=== PATIENT | male | born 2000 | race Caucasian/White ===

== ENCOUNTER 2021-08-25 22:44 | Emergency (ER) | payer MEDICAID, SELFPAY ==
[2021-08-25 22:45] VITALS: BP 148/67; PULSE 92; RESP 18; TEMP 36.6; O2SAT 98; BMI 38.5
--- NOTE | 2021-08-25 22:59 | PC.NURSE ---
Pt unable to give urine sample at this time.
--- NOTE | 2021-08-25 23:01 | CT_ITS ---
PROCEDURE INFORMATION: Exam: CT Abdomen And Pelvis Without Contrast Exam date and time: 08/25/2021 11:35 PM Age: 20 years old Clinical indication: Abdominal pain; Flank; Left; Additional info: Rule out kidney stone TECHNIQUE: Imaging protocol: Computed tomography of the abdomen and pelvis without contrast. Radiation optimization: All CT scans at this facility use at least one of these dose optimization techniques: automated exposure control; mA and/or kV adjustment per patient size (includes targeted exams where dose is matched to clinical indication); or iterative reconstruction. COMPARISON: No relevant prior studies available. FINDINGS: Liver: Normal. No mass. Gallbladder and bile ducts: Normal. No calcified stones. No ductal dilation. Pancreas: Normal. No ductal dilation. Spleen: Normal. No splenomegaly. Adrenal glands: Normal. No mass. Kidneys and ureters: Normal. No hydronephrosis. Stomach and bowel: Unremarkable. No obstruction. No mucosal thickening. Appendix: No evidence of appendicitis. Intraperitoneal space: Unremarkable. No free air. No significant fluid collection. Vasculature: Unremarkable. No abdominal aortic aneurysm. Lymph nodes: Unremarkable. No enlarged lymph nodes. Urinary bladder: Unremarkable as visualized. Reproductive: Unremarkable as visualized. Bones/joints: Unremarkable. No acute fracture. Soft tissues: Unremarkable. IMPRESSION: No acute findings.
--- NOTE | 2021-08-25 23:05 | [facility].EDNVD ---
ED Disposition Clinical Impression: Renal colic on left side Disposition: Home, Self-Care Condition on Discharge: Good Instructions: DI for Kidney Stones Additional Instructions: fluuids and see pcp for follow up - Critical Care Critical Care Time: No Attestation: On , the high probability of a clinically significant, sudden or life threatening deterioration of the following system(s) required my full and direct attention, intervention and personal management. The time I documented below is in addition to time spent performing reported procedures but includes the following listed in this critical care notation. Medical Decision Making - Medical Records Medical records reviewed: Yes: I reviewed the patient's medical records. - Vinod Inquiry Pt receiving controlled substance: No Vital Signs: 08/25/21 22:45 Temperature 97.9 F Temperature Source Oral Pulse Rate [Left Radial] 92 H Respiratory Rate 18 Blood Pressure [Right Arm] 148/67 H Blood Pressure Mean [Right Arm] 94 Blood Pressure Source [Right Arm] Automatic Cuff Blood Pressure Position [Right Arm] Sitting 02 Sat by Pulse Oximetry 98 Oxygen Delivery Method Room Air - Lab Data Lab results reviewed: Yes: I reviewed the patient's lab results. Lab Results 08/25/21 22:58: WBC 16.2 H, RBC 5.25, Hgb 15.1, Hct 43.9, MCV 83.5, MCH 28.8, MCHC 34.5, RDW 13.6, Plt Count 377, MPV 8.3, Neut % (Auto) 61.1, Lymph % (Auto) 32.6, [place] % (Auto) 3.7, Eos % (Auto) 1.4, Baso % (Auto) 1.3, Neut # (Auto) 9.9 H, Lymph # (Auto) 5.3 H, [place] # (Auto) 0.6, Eos # (Auto) 0.2, Baso # (Auto) 0.2, Total Counted 100, Neutrophils % (Manual) 69, Band Neutrophils % 3.0, Lymphocytes % (Manual) 25, Monocytes % (Manual) 3, Platelet Estimate Normal, RBC Morphology Normal, ESR 14 08/25/21 22:58: Sodium 139, Potassium 3.5, Chloride 104, Carbon Dioxide 21 L, Anion Gap 17.5 H, BUN 12, Creatinine 1.00, Estimated Creat Clear 225, Estimated GFR 94, Est GFR ( Amer) 114, Glucose 127 H, Calcium 9.5, Total Bilirubin 0.3, AST 34, ALT 42, Alkaline Phosphatase 86, C-Reactive Protein 9.5 H, Total Protein 7.2, Albumin 4.4, Globulin 2.8, Albumin/Globulin Ratio 1.6 08/25/21 22:58: Procalcitonin 0.051 08/25/21 23:52: Urine Color Dk yellow, Urine Appearance Sl cloudy, Urine pH 6.0, Ur Specific [place] >= 1.030, Urine Protein Negative, Urine Glucose (UA) Negative, Urine Ketones Negative, Urine Blood 3+, Urine Nitrate Negative, Urine Bilirubin Negative, Urine Urobilinogen 0.2, Ur Leukocyte Esterase Negative, Urine RBC 20-50 Result diagrams: 08/25/21 22:58 08/25/21 22:58 Orders (Tests/Meds): ED MEDICATIONS Generic Name Dose Route Start Last Admin Trade Name Freq PRN Reason Stop Dose Admin Sodium Chloride 1,000 mls @ 999 mls/hr 08/25/21 23:15 08/25/21 23:07 Sod Chlor 0.9% 1000ml Bag IV 08/26/21 00:15 999 mls/hr .[id number] SHAYY Administration Discontinued Medications Generic Name Dose Route Start Last Admin Trade Name Freq PRN Reason Stop Dose Admin Ketorolac Tromethamine 30 mg 08/25/21 23:03 08/25/21 23:06 Ketorolac 30mg/Ml Vial IV 08/25/21 23:04 30 mg ONCE ONE Administration Ondansetron HCl 4 mg 08/25/21 23:03 08/25/21 23:06 Ondansetron 4mg/2ml Vial IV 08/25/21 23:04 4 mg ONCE ONE Administration - CT Data CT Scan: Abdomen, Pelvis Time Received: 00:[address] Reviewed: Yes: I have viewed the radiologist's interpretation Preliminary Findings: Normal/NAD Medical Decision Narrative: passed stone in the ed and has stable xray and labs Nausea/Vomiting/Diarrhea HPI - General Chief complaint: Abdominal Pain Stated complaint: back round to stomach on Left Side Time Seen by Provider: 08/25/21 23:05 Mode of Arrival: Ambulatory Source of Information: Patient, Medical Record Limitations: No Limitations Description of Symptoms (Recalled from ER Triage Doc. by RN): PT WAS AT WORK- WHEN SUDDENLY HE BEGAN HAVING LEFT FLANK PAIN WITH RADIATION DOWN TO HIS LOW PELVIS.
[2021-08-25 23:08] LABS: Basophils # 0.2 K/mm3 (0-0.2); Basophils % 1.3 % (0.1-2.0); Eosinophils # 0.2 K/mm3 (0.0-0.4); Eosinophils % 1.4 % (0.1-12.0); Hematocrit 43.9 % (42.0-52.0); Hemoglobin 15.1 g/dL (14.1-18.0); Lymphocytes # 5.3 K/mm3 (0.7-4.5); Lymphocytes % 32.6 % (10-50); Mean Corpuscular HGB Conc 34.5 g/dL (31.8-35.4); Mean Corpuscular Hemoglobin 28.8 pg (27.0-31.2); Mean Corpuscular Volume 83.5 fl (80-94); Mean Platelet Volume 8.3 fl (7.4-10.4); Monocytes # 0.6 K/mm3 (0.1-1.0); Monocytes % 3.7 % (1.7-9.3); Neutrophils # 9.9 K/mm3 (1.8-7.8); Neutrophils % 61.1 % (37.0-80.0); Platelet Count 377 K/mm3 (142-424); Red Blood Count 5.25 M/mm3 (4.60-6.20); Red Cell Distribution Width 13.6 % (11.5-17.5); White Blood Count 16.2 K/mm3 (4.8-10.8)
[2021-08-25 23:11] LABS: MANUAL DIFFERENTIAL MANUAL DIFFERENTIAL (MANUAL DIFF)
[2021-08-25 23:19] LABS: Alanine Aminotransferase 42 U/L (12-78); Albumin Level 4.4 g/dl (3.5-5.0); Albumin/Globulin Ratio 1.6 (1.1-1.8); Alkaline Phosphatase 86 U/L (38-126); Anion Gap 17.5 mEq/L (5-15); Aspartate Amino Transferase 34 U/L (17-59); Bilirubin,Total 0.3 mg/dl (0.2-1.3); Blood Urea Nitrogen 12 mg/dl (9-20); Calcium 9.5 mg/dl (8.4-10.2); Carbon Dioxide 21 mmol/L (22.0-30.0); Chloride 104 mmol/L (98-107); Creatinine Clearance Estimated 225 mL/min (50-200); Estimated Glomerular Filt Rate 94 ml/min (>60); GFR (African American) 114 ML/MIN (>60); Globulin 2.8 g/dL (1.3-3.2); Glucose 127 mg/dl (74-100); Potassium 3.5 mmoL/L (3.5-5.1); Sodium 139 mmol/L (136-145); Total Protein,Serum 7.2 g/dl (6.3-8.2)
[2021-08-25 23:24] LABS: C-Reactive Protein 9.5 mg/L (0-4)
[2021-08-25 23:36] LABS: Erythrocyte Sedimentation Rate 14 mm/hr (0-15)
[2021-08-25 23:37] LABS: Lymphocytes % 25 % (10-50); Monocytes % 3 % (2-9); Neutrophils % 69 % (42-76); Platelet Estimate Normal; RBC Morphology Normal; Total Cells Counted 100
[2021-08-25 23:38] LABS: Procalcitonin 0.051 ng/mL (0.0-2.0)
[2021-08-25 23:58] LABS: Microscopic, Urine URINE MICROSCOPIC (MICROSCOPIC)
[2021-08-25 23:59] LABS: Appearance,Urine SL CLOUDY (Clear); Blood, Urine 3+ (Negative); Color,Urine DK YELLOW (Yellow); Glucose,Urine (UA) Negative (Negative); Ketones,Urine Negative (Negative); Leukocyte Esterase,Urine Negative (Negative); Nitrate,Urine Negative (Negative); Protein,Urine Negative (Negative); Specific Gravity, Urine >= 1.030 (1.005-1.030); Urobilinogen,Urine 0.2 EU/dl (0.2)
[2021-08-26] VITALS: BP 133/81; PULSE 80; O2SAT 97
[2021-08-26 00:03] LABS: Bilirubin,Urine Negative (Negative)
[2021-08-26 00:04] LABS: RBC,Urine 20-50 #/hpf (0-3)
[2021-08-26 00:30] VITALS: BP 149/72; PULSE 68; O2SAT 96
[2021-08-26 00:57] VITALS: BP 149/72; PULSE 68; RESP 16; TEMP 37.1; O2SAT 96
[2021-08-26 02:09] VITALS: BP 149/72; PULSE 68; RESP 16; TEMP 37; O2SAT 98
== END 2021-08-26 02:14 | disposition home or self-care (01) ==
PROVIDERS: Emergency Provider Emergency Medicine
DX: R11.0 Nausea; Z91.040 Latex allergy status
CPT/HCPCS: 74176; 80053; 81001; 84145; 85007; 85025; 85651; 86140; 96374; 96375; 99285; J2405